=== PATIENT | male | born 1965 | race Caucasian/White ===

== ENCOUNTER 2018-08-04 19:50 | Inpatient (IN) | payer OTHER ==
[~2018-08-04] VITALS: Ht 188 cm; Wt 99.8 kg
--- NOTE | 2018-08-04 20:00 | NUR ---
Patient ambulated with stable gait. Speech is clear, speaks in complete sentences. No neuro deficits noted. Patient came for c/o pain in his chest non-radiating along with difficulty breathing. No GI/ distress noted. patient in bed at lowest position, sr upx2, call light within reach. Fall precautions implemented per protocol. Patient hooked up to the monitor.
[2018-08-04 20:16] LABS: BASOPHILS # (AUTO) 0.1 K/uL (0.0-8.0); BASOPHILS % (AUTO) 0.7 % (0.0-2.0); EOSINOPHILS # (AUTO) 0.1 K/uL (0.0-0.7); EOSINOPHILS % (AUTO) 0.7 % (0.0-7.0); HEMATOCRIT 48.9 % (36.7-47.1); HEMOGLOBIN 16.1 g/dL (12.5-16.3); LYMPHOCYTES % (AUTO) 15.9 % (20.5-51.5); MEAN CORPUSCULAR HEMOGLOBIN 27.8 uug (23.8-33.4); MEAN CORPUSCULAR HGB CONC 33 g/dL (32.5-36.3); MEAN CORPUSCULAR VOLUME 84.4 fL (73.0-96.2); MONOCYTES # (AUTO) 0.9 K/uL (2.0-10.0); MONOCYTES % (AUTO) 6.9 % (0.0-11.0); NEUTROPHILS # (AUTO) 9.4 K/uL (1.8-8.9); NEUTROPHILS % (AUTO) 75.8 % (38.5-71.5); PLATELET COUNT (AUTO) 183 K/uL (152-348); WHITE BLOOD COUNT (AUTO) 12.4 K/uL (3.6-10.2)
[2018-08-04 20:23] LABS: POTASSIUM 3.9 mmol/L (3.5-5.1)
[2018-08-04] MEDS ORDERED: TESTOSTERONE IM (21:06)
[2018-08-04] MEDS ORDERED: LORAZEPAM 2 MG/1 ML VIAL IV ONE (21:15)
[2018-08-04] MEDS ORDERED: METOPROLOL SUCCINATE XL 25 MG TAB.SR.24H PO ONE ×2 (21:15→21:24)
[2018-08-04] MEDS ORDERED: NITROGLYCERIN OINT 1 GM PACKET TP ONE ×2 (21:15→21:23)
[2018-08-04] MEDS ORDERED: ASPIRIN 81 MG TAB.CHEW PO ONE (21:15)
[2018-08-04] MEDS ORDERED: ASPIRIN 81 MG TAB.CHEW ONE (21:23)
[2018-08-04] MEDS ORDERED: LORAZEPAM 2 MG/1 ML VIAL ONE (21:25)
[2018-08-04] MEDS ORDERED: ONDANSETRON 4 MG/2 ML VIAL IV PRN (22:00)
[2018-08-04] MEDS ORDERED: HYDROCODONE/APAP 5-325MG TABLET PO PRN (22:00)
[2018-08-04] MEDS ORDERED: NITROGLYCERIN 0.4 MG/TAB BOTTLE SL PRN (22:00)
[2018-08-04] MEDS ORDERED: MORPHINE SULFATE 2 MG/1 ML DISP.SYRIN IV PRN (22:00)
[2018-08-04] MEDS ORDERED: Z GUARD REMEDY PASTE 57 GM TUBE TOP PRN (22:00)
[2018-08-04] MEDS ORDERED: MAGNESIUM HYDROXIDE 30 ML LIQUID UDC PO PRN (22:00)
[2018-08-04] MEDS ORDERED: ACETAMINOPHEN 325 MG TABLET PO PRN (22:00)
--- NOTE | 2018-08-04 22:00 | NUR ---
Report given to JOHN Gates
--- NOTE | 2018-08-04 22:40 | NUR ---
Patient transported to TELE in stable condition.
--- NOTE | 2018-08-04 23:00 | NUR ---
Patient is in the room, placed on the monitor and assessed. Denies pain or SOB. AOx4, cooperative, IV is patent.
[2018-08-04 23:11] VITALS: BP 134/77
[2018-08-05 00:59] VITALS: BP 132/77
[2018-08-05 04:48] VITALS: BP 131/68
[2018-08-05 06:41] LABS: BASOPHILS % (AUTO) 0.4 % (0.0-2.0); EOSINOPHILS # (AUTO) 0.1 K/uL (0.0-0.7); EOSINOPHILS % (AUTO) 0.9 % (0.0-7.0); LYMPHOCYTES # (AUTO) 1.6 K/uL (20.0-40.0); MONOCYTES # (AUTO) 0.7 K/uL (2.0-10.0)
--- NOTE | 2018-08-05 06:41 | NUR ---
Patient slept intermittently. No pain or SOB reported. Ambulated to the bathroom ad bill, tolerated well ate a sandwich and pudding. Wants to go to work, considers leaving prior to seeing the doctor.
[2018-08-05 06:50] LABS: HEMATOCRIT 46.4 % (36.7-47.1); HEMOGLOBIN 15.8 g/dL (12.5-16.3); LYMPHOCYTES % (AUTO) 19.2 % (20.5-51.5); MEAN CORPUSCULAR HEMOGLOBIN 28.8 uug (23.8-33.4); MEAN CORPUSCULAR HGB CONC 34 g/dL (32.5-36.3); MEAN CORPUSCULAR VOLUME 84.6 fL (73.0-96.2); MONOCYTES % (AUTO) 8.4 % (0.0-11.0); NEUTROPHILS # (AUTO) 5.9 K/uL (1.8-8.9); NEUTROPHILS % (AUTO) 71.1 % (38.5-71.5); PLATELET COUNT (AUTO) 165 K/uL (152-348); RED BLOOD CELL COUNT(AUTO) 5.48 MIL/uL (4.06-5.63)
[2018-08-05 06:51] LABS: WHITE BLOOD COUNT (AUTO) 8.3 K/uL (3.6-10.2)
[2018-08-05 06:57] LABS: MAGNESIUM 1.9 mg/dL (1.8-2.4); PHOSPHOROUS 3.4 mg/dL (2.5-4.9); POTASSIUM 3.9 mmol/L (3.5-5.1)
[2018-08-05] MEDS ORDERED: PANTOPRAZOLE SODIUM 40 MG TABLET.DR PO SCH (07:00)
[2018-08-05 08:15] LABS: THYROID STIMULATING HORMONE 5.423 mIU/mL (0.358-3.740)
[2018-08-05] MEDS ORDERED: ASPIRIN EC 81 MG TABLET.DR PO SCH (09:00)
[2018-08-05 11:05] VITALS: BP 146/71
[2018-08-05] MEDS ORDERED: SWABABLE VALVE TRANSFER SET EA MC ONE (12:47)
[2018-08-05] MEDS ORDERED: IOPAMIDOL 15 ML VIAL IT ONE (12:48)
[2018-08-05] MEDS ORDERED: IOHEXOL 350 100 ML INFUS..BTL ONE (12:48)
--- NOTE | 2018-08-05 13:15 | NUR ---
DR. BO GALEANA IN THIS AM TO EXAMINE PT. REVIEW TESTS AND DISCUSS PLAN OF CARE. DR. WALTERS IN TO EXAMINE PT. FOLLOW-UP TESTS AND TO REVIEW PLAN OF FOLLOW-UP CARE WITH PT. PT. STATES HE UNDERSTANDS AND WILL SEE DR. WALTERS IN OFFICE ON SUNDAY THIS WEEK--[APPT. MADE BY PT.]. 2D ECHO, CTA , TROPONIN COMPLETED PRIOR TO DISCHARGE. TELE D/C'D. IV D/C'D. HOME INSTRUCTIONS AND FOLLOW-UP CARE REVIEWED WITH PT. PT. VERY ANXIOUS TO GO HOME. DISCHARGED TO SELF--V/S STABLE , DENIES CHEST PAIN.
[2018-08-05] MEDS ORDERED: ASPI-618 PO (13:18)
[2018-08-05 15:30] VITALS: BP 140/76
== END 2018-08-05 15:25 | disposition home or self-care (01) | DRG 880 ==
LOC: ER 19:52 → TELE3 22:41 → MEDSURG3 08-05 13:50
DX: F41.0 Panic disorder [episodic paroxysmal anxiety] (principal); R00.0 Tachycardia, unspecified; Z63.0 Problems in relationship with spouse or partner; I77.819 Aortic ectasia, unspecified site; E29.1 Testicular hypofunction; F15.90 Other stimulant use, unspecified, uncomplicated; R94.31 Abnormal electrocardiogram [ECG] [EKG]; R03.0 Elevated blood-pressure reading, without diagnosis of hypertension; I25.9 Chronic ischemic heart disease, unspecified
CPT/HCPCS: 36415; 70030-TC; 71045; 83735; 84100; 84443; 85025; 93005; 93307; A4663; G0378; J2060; Q9967